=== PATIENT | male | born 1940 | race Caucasian/White ===

== ENCOUNTER 2023-11-12 11:59 | Emergency (ER) | payer MEDICARE, BC ==
[2023-11-12 12:21] VITALS: BP 166/96; PULSE 106
[2023-11-12] MEDS: Lidocaine 1% 30 ML SDV INJECT ONE (12:26)
[2023-11-12 12:41] LABS: BASOPHILS PERCENT AUTO 0.3 % (0.0-1.0); EOSINOPHILS PERCENT AUTO 2.9 % (1.0-3.0); HEMATOCRIT 40.9 % (40.0-54.0); HEMOGLOBIN 14.5 g/dL (14.0-18.0); LYMPHOCYTES PERCENT AUTO 22.4 % (20.5-50.1); MEAN CORPUSCULAR HEMOGLOBIN 34.9 pg (27.0-34.0); MEAN CORPUSCULAR HGB CONC 35.5 g/dL (33.0-35.0); MEAN CORPUSCULAR VOLUME 98.6 fL (80-100); MONOCYTES PERCENT AUTO 7.4 % (2-8); PLATELET COUNT,PLT 136 10^3/uL (150-450); RED BLOOD CELL COUNT 4.15 10^6/uL (4.6-6.2); WHITE BLOOD CELL COUNT,WBC 7.8 10^3/uL (5.0-10.0)
[2023-11-12 13:08] LABS: A/G RATIO 1.2; ALBUMIN 3.9 g/dL (3.4-5.0); ANION GAP 16.7 mEq/L (7-13); BILIRUBIN TOTAL 0.9 mg/dL (0.2-1.0); CALCIUM 9.1 mg/dL (8.5-10.1); CREATININE 1.24 mg/dL (0.70-1.30); EST CRCL DRUG DOSING (CG) 41.45 mL/min; POTASSIUM,K 4.7 mmol/L (3.5-5.1); PROTEIN TOTAL,TP 7.1 g/dL (6.4-8.2)
== END 2023-11-12 13:33 | disposition home or self-care (01) ==
LOC: DL.ED 11:59
DX: S01.01XA Laceration without foreign body of scalp, initial encounter (principal); I10 Essential (primary) hypertension; E78.00 Pure hypercholesterolemia, unspecified; Z88.8 Allergy status to other drugs, medicaments and biological substances; Z79.82 Long term (current) use of aspirin; Z79.899 Other long term (current) drug therapy; W19.XXXA Unspecified fall, initial encounter
CPT/HCPCS: 12005; 36415; 70450; 80053; 83690; 84484; 85025; 93005; 93010; 99284; J3490